=== PATIENT | male | born 1980 | race Caucasian/White ===

== ENCOUNTER → 2016-11-26 | Outpatient (CLI) | payer BC ==
[~2016-11-26] VITALS: Ht 175.3 cm; Wt 97.7 kg
[~2016-11-26] MED LIST: AMITRIPTYLINE10 MG PO; BACTRIM DS 8001 TAB PO; BENADRYL50 MG PO; BENTYL 20MG TAB20 MG PO; BENTYL PO; BUSPIRONE5 MG PO; CARDI-OMEGA1000 MG PO; CEPHALEXIN500 M1 PO; CITALOPRAM20 MG PO; COZAAR100 MG PO; CRESTOR PO; DAZIDOX10 MG PO; DEXILANT60 MG PO; DILAUDID 2MG TAB2 MG PO; DOMPERIDONE10 MG/CAP PO; FLEXERIL 1010 MG/TAB PO; IMITREX 6M6 MG/0.5 M SQ; LISINOPRIL PO; LISINOPRIL20 MG PO; LORAZEPAM0.5 MG PO; LORTAB 5/500 501 TAB PO; LORTAB 7.5/5001 TAB PO; MAXALT MLT10 MG/TAB PO; MAXALT10 MG PO; METHADONE5 MG PO; METOPROLOL SUCC25 M1 PO; NAPROSYN PO; NEXIUM PO; NIASPAN500 MG PO; ONDANSETRON4 MG PO; OXYCONTIN 10MG10 MG PO; OXYCONTIN40 MG PO; PERCOCET 325 MG1 TA2 PO; PERCOCET 5/321 UDTAB PO; PHENERGAN 25 TA25 MG PO; PRAVASTATIN20 MG PO; PREDNISONE20 MG PO; PRILOSEC 10MG10 MG PO; TOPROL XL 50MG50 MG PO; TREXIMET PO; [UNRECOGNIZED DRUG - OTHER]
[2016-11-26 12:21] VITALS: BP 130/90; PULSE 60
[2016-11-26 13:05] VITALS: BP 145/98; PULSE 59
== END ==
LOC: COL.RAD 11:45
DX: M51.9 Unspecified thoracic, thoracolumbar and lumbosacral intervertebral disc disorder (principal)

== ENCOUNTER → 2016-12-28 | Outpatient (CLI) | payer BC ==
[~2016-12-28] VITALS: Ht 175.3 cm; Wt 95.5 kg
[2016-12-28 07:16] VITALS: BP 141/105; PULSE 85
== END ==
LOC: COL.RAD 06:30
DX: M51.9 Unspecified thoracic, thoracolumbar and lumbosacral intervertebral disc disorder (principal)
CPT/HCPCS: J3301

== ENCOUNTER → 2017-01-16 | Outpatient (CLI) | payer BC ==
[2017-01-16 09:10] VITALS: BP 144/101; PULSE 79
[2017-01-16 10:11] VITALS: BP 170/119; PULSE 77
[2017-01-16 10:20] VITALS: BP 142/94; PULSE 70
[2017-01-16 10:40] VITALS: BP 134/90; PULSE 78
== END ==
LOC: COL.RAD 12-31 08:00
DX: M51.9 Unspecified thoracic, thoracolumbar and lumbosacral intervertebral disc disorder (principal)
CPT/HCPCS: J3301

== ENCOUNTER 2017-04-13 16:28 | Emergency (ER) | payer BC ==
[~2017-04-13] VITALS: Ht 175.3 cm; Wt 97.7 kg
[2017-04-13 16:32] VITALS: BP 184/101; TEMP 99
[2017-04-13 17:13] VITALS: PULSE 72
== END 2017-04-13 17:14 | disposition home or self-care (01) ==
LOC: COL.ER 16:28
DX: M54.16 Radiculopathy, lumbar region (principal); G89.29 Other chronic pain; M41.9 Scoliosis, unspecified
CPT/HCPCS: J1170; J2550

== ENCOUNTER 2019-06-01 13:44 | Emergency (ER) | payer OTHER ==
[~2019-06-01] VITALS: Ht 175.3 cm; Wt 97.7 kg
[2019-06-01 14:22] VITALS: TEMP 98.4
[2019-06-01 15:10] LABS: COLLECTION METHOD CLEAN CATCH
[2019-06-01 15:18] LABS: BASO # 0.1 (0.0-0.2); BASO % 0.6 % (0.0-2.0); EOS # 0.3 (0.0-0.7); EOS % 4.2 % (0-4.0); GRAN # 4.8 (1.4-6.5); HEMATOCRIT 39.8 % (42.0-52.0); HEMOGLOBIN 13.7 g/dl (13.5-18.0); LYMPH # 1.9 (1.2-3.4); LYMPH % 24.8 % (20.0-51.0); MEAN CELL VOLUME 86 fl (80.0-100.0); MEAN CORPUSCULAR HEMOGLOBIN 30 pg (27.0-31.0); MEAN CORPUSCULAR HGB CONC 34 g/dl (33.0-37.0); MEAN PLATELET VOLUME 9.8 fl (7.4-10.4); MONO # 0.7 (0.1-0.6); PLATELET COUNT 234 K/mm3 (130-400); RED BLOOD COUNT 4.64 M/mm3 (4.20-5.60); REDCELL DISTRIBUTION WIDTH-CV 12.3 % (11.5-14.5)
[2019-06-01 15:20] LABS: MUCOUS Present /lpf; PH 5 (5-8); SQUAMOUS EPITHELIAL None Seen /hpf; URINE APPEARANCE Clear; URINE BACTERIA None Seen /hpf; URINE BILIRUBIN Negative (NEGATIVE); URINE BLOOD 2+ (NEGATIVE); URINE COLOR Yellow; URINE GLUCOSE Negative (NEGATIVE); URINE KETONE Trace (NEGATIVE); URINE LEUKOCYTE ESTERASE Negative (NEGATIVE); URINE NITRATE Negative (NEGATIVE); URINE PROTEIN(semi-quant) Negative (NEGATIVE); URINE UROBILINOGEN Negative (NEGATIVE)
[2019-06-01 15:27] LABS: ALBUMIN 4.3 gm/dL (3.5-5.0); BILIRUBIN,TOTAL 0.6 mg/dL (0.0-1.0); C-REACTIVE PROTEIN 1.3 mg/dL (0.0-0.9); CALCIUM 9.2 mg/dL (8.4-10.2); CREATININE, serum 1.25 (0.66-1.25); POTASSIUM 3.5 mmol/L (3.4-5.0); TOTAL PROTEIN 7.4 gm/dL (6.4-8.2)
[2019-06-01] MEDS ORDERED: MORPHINE 1515 MG/TAB PO (16:30)
[2019-06-01] MEDS ORDERED: SOMA 350MG350 MG/TAB PO (16:31)
[2019-06-01] MEDS ORDERED: ZOFRAN ODT4 MG PO (17:42)
[2019-06-01 17:58] VITALS: BP 125/93; PULSE 81
== END 2019-06-01 18:00 | disposition home or self-care (01) ==
LOC: COL.ER 13:44
PROVIDERS: Nurse Practitioner
DX: R10.31 Right lower quadrant pain (principal); I10 Essential (primary) hypertension; F17.210 Nicotine dependence, cigarettes, uncomplicated; F32.9 Major depressive disorder, single episode, unspecified; F41.9 Anxiety disorder, unspecified; Z90.89 Acquired absence of other organs
CPT/HCPCS: J1170; J2405; J7030; Q9967

== ENCOUNTER 2020-03-25 20:14 | Emergency (ER) | payer OTHER ==
[~2020-03-25] VITALS: Ht 172.7 cm; Wt 100.0 kg
[~2020-03-25 20:14] MED LIST changes: +MORPHINE 1515 MG/TAB PO; +SOMA 350MG350 MG/TAB PO; +ZOFRAN ODT4 MG PO
[2020-03-25 20:21] VITALS: TEMP 98.1
[2020-03-25 21:23] LABS: BASO # 0.1 (0.0-0.2); BASO % 0.5 % (0.0-2.0); EOS # 0.4 (0.0-0.7); EOS % 3.2 % (0-4.0); GRAN # 8.6 (1.4-6.5); GRAN % 65.8 % (42.2-75.2); HEMATOCRIT 46.3 % (42.0-52.0); HEMOGLOBIN 15.7 g/dl (13.5-18.0); LYMPH # 2.8 (1.2-3.4); LYMPH % 21.5 % (20.0-51.0); MEAN CELL VOLUME 86 fl (80.0-100.0); MEAN CORPUSCULAR HEMOGLOBIN 29 pg (27.0-31.0); MEAN CORPUSCULAR HGB CONC 34 g/dl (33.0-37.0); MEAN PLATELET VOLUME 9.8 fl (7.4-10.4); MONO # 1.2 (0.1-0.6); MONO % 8.8 % (1.7-9.3); PLATELET COUNT 282 K/mm3 (130-400); RED BLOOD COUNT 5.37 M/mm3 (4.20-5.60); REDCELL DISTRIBUTION WIDTH-CV 12.4 % (11.5-14.5)
[2020-03-25] MEDS ORDERED: NEXIUM 40MG40 MG PO (21:23)
[2020-03-25 21:41] LABS: ALANINE AMINOTRANSFERASE 32 U/L (4-49); ALBUMIN 4.5 gm/dL (3.5-5.0); ALKALINE PHOSPHATASE 114 U/L (50-136); ANION GAP 9 mmol/L (7-16); AST,SGOT 34 U/L (15-37); BILIRUBIN,TOTAL 0.8 mg/dL (0.0-1.0); BLOOD UREA NITROGEN 11 mg/dL (9-20); CALCIUM 9.4 mg/dL (8.4-10.2); CARBON DIOXIDE 30 mmol/L (22-30); CHLORIDE 99 mmol/L (98-107); CREATININE, serum 1.25 (0.66-1.25); GLUCOSE 83 mg/dL (74-106); POTASSIUM 3.2 mmol/L (3.4-5.0); SODIUM 139 mmol/L (137-145); TOTAL PROTEIN 7.8 gm/dL (6.4-8.2)
[2020-03-25 22:10] LABS: C-REACTIVE PROTEIN < 0.5 mg/dL (0.0-0.9); TROPONIN-I < 0.012 ng/mL (0.000-0.035)
[2020-03-25] MEDS ORDERED: ANTIVERT 25MG25 MG PO (22:49)
[2020-03-25] MEDS ORDERED: NORVASC 5MG5 MG/TAB PO (22:49)
[2020-03-25 23:08] VITALS: BP 144/95; PULSE 86
== END 2020-03-25 23:18 | disposition home or self-care (01) ==
LOC: COL.ER 20:14
PROVIDERS: Emergency Medicine
DX: I10 Essential (primary) hypertension (principal); R42 Dizziness and giddiness; R05 Cough; F17.210 Nicotine dependence, cigarettes, uncomplicated
CPT/HCPCS: J2060; J7030

== ENCOUNTER 2020-09-25 09:59 | Emergency (ER) | payer BC ==
[~2020-09-25] VITALS: Ht 172.7 cm; Wt 98.2 kg
[~2020-09-25 09:59] MED LIST changes: +ANTIVERT 25MG25 MG PO; +NEXIUM 40MG40 MG PO; +NORVASC 5MG5 MG/TAB PO
[2020-09-25 10:06] VITALS: TEMP 97.4
[2020-09-25 12:20] VITALS: BP 126/88; PULSE 76
== END 2020-09-25 12:30 | disposition home or self-care (01) ==
LOC: COL.ER 09:59
DX: I10 Essential (primary) hypertension (principal); M54.5 Low back pain; R10.31 Right lower quadrant pain; Z20.822 Contact with and (suspected) exposure to COVID-19; Z90.49 Acquired absence of other specified parts of digestive tract; Z88.1 Allergy status to other antibiotic agents; Z88.8 Allergy status to other drugs, medicaments and biological substances

== ENCOUNTER → 2020-10-20 | Outpatient (CLI) | payer BC | LOC: COL.RAD 09:12 | DX: K44.9 Diaphragmatic hernia without obstruction or gangrene (principal) ==

== ENCOUNTER 2020-11-09 10:35 | Observation (INO) | payer BC ==
[~2020-11-09] VITALS: Ht 172.7 cm; Wt 97.7 kg
[2020-11-09 11:41] LABS: BASO % 0.5 % (0.0-2.0); EOS # 0.3 (0.0-0.7); EOS % 3.6 % (0-4.0); GRAN # 5.1 (1.4-6.5); GRAN % 59.5 % (42.2-75.2); HEMATOCRIT 40.9 % (42.0-52.0); LYMPH # 2.4 (1.2-3.4); LYMPH % 27.7 % (20.0-51.0); MEAN CELL VOLUME 87 fl (80.0-100.0); MEAN CORPUSCULAR HEMOGLOBIN 30 pg (27.0-31.0); MEAN CORPUSCULAR HGB CONC 34 g/dl (33.0-37.0); MEAN PLATELET VOLUME 9.6 fl (7.4-10.4); MONO # 0.7 (0.1-0.6); MONO % 8.3 % (1.7-9.3); PLATELET COUNT 227 K/mm3 (130-400); RED BLOOD COUNT 4.73 M/mm3 (4.20-5.60); REDCELL DISTRIBUTION WIDTH-CV 12.5 % (11.5-14.5)
[2020-11-09 12:12] LABS: PROTHROMBIN TIME 11.2 SECONDS (9.7-12.8)
[2020-11-09 12:14] LABS: PARTIAL THROMBOPLASTIN TIME 30.2 SECONDS (26.0-37.0)
[2020-11-09 12:53] LABS: TRICYCLIC ANTIDEPRESS URINE NEGATIVE
[2020-11-09 13:08] LABS: ALANINE AMINOTRANSFERASE 23 U/L (4-49); ALKALINE PHOSPHATASE 97 U/L (50-136); ANION GAP 9 mmol/L (7-16); AST,SGOT 23 U/L (15-37); BILIRUBIN,TOTAL 0.6 mg/dL (0.0-1.0); BLOOD UREA NITROGEN 24 mg/dL (9-20); CALCIUM 9.5 mg/dL (8.4-10.2); CARBON DIOXIDE 28 mmol/L (22-30); CHLORIDE 103 mmol/L (98-107); CREATININE, serum 1.05 (0.66-1.25); GLUCOSE 89 mg/dL (74-106); LIPASE 98 U/L (23-300); POTASSIUM 3.5 mmol/L (3.4-5.0); SODIUM 139 mmol/L (137-145); TOTAL PROTEIN 6.8 gm/dL (6.4-8.2)
[2020-11-09] MEDS ORDERED: SOMA 350MG350 MG/TAB PO (13:16)
[2020-11-09] MEDS ORDERED: PRILOSEC10 MG PO (13:16)
[2020-11-09] MEDS ORDERED: TOPROL XL 50MG50 MG PO (13:18)
[2020-11-09] MEDS ORDERED: ZOFRAN ODT8 MG PO (13:18)
[2020-11-09] MEDS ORDERED: NIRAVAM0.25 MG PO (13:19)
[2020-11-09 13:21] LABS: TROPONIN-I < 0.012 ng/mL (0.000-0.035)
--- NOTE | 2020-11-09 16:27 | NUR ---
PT SETTLED INTO ROOM, EDUCATED HE NEEDS TO ASK FOR HELP WHEN GETTING UP, ORIENTED HIM TO ROOM AND CALL LIGHT, ICE WATER AND URINAL BROUGHT IN FOR PT, PT AOX4, ASSESSMENT PERFORMED, ALLERGIES VERIFIED, MED LIST OBTAINED. NO OTHER NEEDS.
[2020-11-09] MEDS ORDERED: REGLAN 10MG10 MG/TAB PO (16:39)
[2020-11-09] MEDS ORDERED: HYZAAR 25 MG-101 TAB PO (16:41)
[2020-11-09] MEDS ORDERED: OMEGA-3 1000 MG1 CAP PO (16:44)
--- NOTE | 2020-11-09 17:40 | NUR ---
PT LOIS, AOX4, EDUCATED TO USE CALL LIGHT WHEN GETTING UP, DR. MIRELES AWARE OF INC DIASTOLIC, NO NEW ORDERS, MED REC COMPLETED, NO OTHER NEEDS
[2020-11-09 17:50] VITALS: BP 133/101; PULSE 66
[2020-11-09 17:52] VITALS: BP 154/113; PULSE 72
--- NOTE | 2020-11-09 17:53 | NUR ---
DR. MALAVE GAVE VERBAL ORDER FOR PLAVIX AND LOVENOX AND ORTHOSTATIC PRESSURES ONE TIME. ALL ORDERS PLACED
[2020-11-09 17:54] VITALS: BP 154/121; PULSE 74
[2020-11-09 17:59] VITALS: BP 133/101; PULSE 66
--- NOTE | 2020-11-09 18:03 | NUR ---
ANANDA AWARE OF ORTHOSTATICS, ATTEMPTED TO REACH SURESH REYNA DUE TO HIGH DIASTOLICS BUT SHE DID NOT ANSWER.
--- NOTE | 2020-11-09 18:28 | NUR ---
MARICHUY NOTIFIED OF HIGH BP AND PT HAVING HEARTBURN. PROTONIX ORDERED AND GIVEN, PT ALSO REQUESTED ZORAIDA WHICH WAS GIVEN FOR BACK PAIN.
[2020-11-09 19:14] VITALS: BP 139/105; PULSE 75; TEMP 68.3
[2020-11-09 23:42] VITALS: BP 123/86; PULSE 89; TEMP 97.7
[2020-11-10 04:47] VITALS: BP 120/85; PULSE 70; TEMP 97.7
[2020-11-10 07:02] LABS: BASO % 0.5 % (0.0-2.0); EOS # 0.4 (0.0-0.7); EOS % 5.3 % (0-4.0); GRAN # 4.6 (1.4-6.5); GRAN % 55.4 % (42.2-75.2); HEMATOCRIT 40.2 % (42.0-52.0); HEMOGLOBIN 13.7 g/dl (13.5-18.0); LYMPH # 2.6 (1.2-3.4); LYMPH % 31.1 % (20.0-51.0); MEAN CELL VOLUME 89 fl (80.0-100.0); MEAN CORPUSCULAR HEMOGLOBIN 30 pg (27.0-31.0); MEAN CORPUSCULAR HGB CONC 34 g/dl (33.0-37.0); MEAN PLATELET VOLUME 9.9 fl (7.4-10.4); MONO # 0.6 (0.1-0.6); MONO % 7.2 % (1.7-9.3); PLATELET COUNT 231 K/mm3 (130-400); RED BLOOD COUNT 4.54 M/mm3 (4.20-5.60); REDCELL DISTRIBUTION WIDTH-CV 12.5 % (11.5-14.5)
[2020-11-10 07:12] LABS: CALCIUM 8.6 mg/dL (8.4-10.2); CHOLESTEROL RISK RATIO 6.3; CREATININE, serum 1.12 (0.66-1.25); POTASSIUM 3.6 mmol/L (3.4-5.0)
[2020-11-10 08:51] VITALS: BP 130/96; PULSE 81; TEMP 97.5
--- NOTE | 2020-11-10 09:00 | NUR ---
Assessment completed, alert/oriented, vital signs stable/ HTN but we are holding B/p meds to allow permissive HTN, denies any chest pain discomfort, heart RRR, lungs CTA/ no resp.difficulty noted, no neuro deficits noted and patient reprots everyhting is "back to normal", speech clear/ processing assistant equal and no unilateral defictis noted, he is sitting up eating breakfast and waiting for have braind MRI/MRA
[2020-11-10 12:00] VITALS: BP 125/90; PULSE 77; TEMP 97.7
--- NOTE | 2020-11-10 14:56 | NUR ---
Cyber Threat Analyst contacted the patient's , [facility] to complete intake. The patient lives independently in [place] with [facility]ina. The patient does not use DME. The patient's PCP is Dr. Rao and patient receives medications from [facility]. The patient does not have advanced directives. The plan is for the patient to return home. PT is recommending outpatient pt. SW discussed options with [facility]. She will discuss them with the patient then inform this SW.
[2020-11-10 17:01] VITALS: BP 131/90; PULSE 80; TEMP 98.1
[2020-11-10 19:11] VITALS: BP 123/92; PULSE 74; TEMP 98.3
[2020-11-11 00:37] VITALS: BP 125/93; PULSE 75; TEMP 97.6
[2020-11-11 04:40] VITALS: BP 126/83; PULSE 71; TEMP 97.6
--- NOTE | 2020-11-11 07:00 | NUR ---
Report received from KRISTIE Klein. pT in bed resting, denies needs, will continue to monitor.
[2020-11-11 08:39] VITALS: BP 131/89; PULSE 65; TEMP 98.3
--- NOTE | 2020-11-11 09:43 | NUR ---
Assessment charted. PT doing well, has headache that is 6/10 but does not want t ot take pain meds as at this time. Consent completed and questions answered, reviewed flat time post procedure. Pt is weak and states left is more weak then right. IVF to LA/C. Pt wants to rest with lights off for headache, will continuye to monitor.
[2020-11-11] MEDS ORDERED: PLAVIX 75MG TAB75 MG PO (10:24)
[2020-11-11] MEDS ORDERED: HCTZ 25MG TAB25 MG PO (10:25)
[2020-11-11] MEDS ORDERED: ASPIRIN E.C. 8181 MG PO (10:25)
[2020-11-11] MEDS ORDERED: LIPITOR 40MG TA40 MG PO (10:26)
[2020-11-11] MEDS ORDERED: NICODERM C21 MG/PATC TD (10:27)
--- NOTE | 2020-11-11 10:34 | NUR ---
Dowel Inserting Machine Operator attended clinical rounds with the team. After rounds, SW met with the patient and his regarding outpatient therapy. The patient is to got to [facility] on . SW faxed referral. SW collaborated the above information with the team.
[2020-11-11 13:02] LABS: TOTAL PROTEIN,CSF 36 mg/dL (15-45)
[2020-11-11 13:14] VITALS: BP 119/82; PULSE 60; TEMP 97.8
[2020-11-11 13:20] LABS: CSF APPEARANCE CLEAR; CSF COLOR COLORLESS; CSF RBC < 1 /mm3 (0-0)
[2020-11-11 13:21] LABS: CSF MONONUCLEAR 90 % (70-100); CSF POLYMORPHONUCLEAR 10 % (0-6)
--- NOTE | 2020-11-11 14:45 | NUR ---
Pt returned to room, resting in bed, bandaid is CDI, ordered lunch, drinking pepsi, denies needs, at bedside, will continue to monitor.
--- NOTE | 2020-11-11 16:07 | NUR ---
Discharge teaching completed at [facility] time. Pt received discharge packet, reveiwed new meds, f/u appointments, answered all questions. Pt INT dc'd, tip intact. Pt left with all belongings, escorted out via w/c with medical staff. to drive home, criteria met.
[2020-11-11 19:03] LABS: LYME DISEASE ANTIBODIES Negative (Negative)
[2020-11-13 13:54] LABS: ANA SCREEN with REFLEX Negative (Negative)
[2020-11-14 13:15] LABS: HSV 2 DNA PCR QUAL Not Detected (())
[2020-11-16 21:25] LABS: CSF OLIG BD INTERPRETATION 0 bands (<2); SE OLIGOCLONAL BANDING 0 bands (())
[2020-11-17 07:47] LABS: ALBUMIN CSF 23.1 mg/dL (<=27.0)
[2020-11-17 08:16] LABS: ALBUMUN SERUM 3640 mg/dL (()); IGG,SERUM 683 mg/dL (()); IGG/ALBUMIN SERUM 0.19 (<=0.40)
[2020-11-17 08:19] LABS: CSF IGG/ALBUMIN 0.12 (<=0.21); CSF SYNTHESIS RATE 2.86 mg/24 h (<=12); CSF,IGG 2.7 mg/dL (<=8.1); CSF-IGG INDEX 0.63 (<=0.85)
== END 2020-11-11 16:00 | disposition home or self-care (01) ==
LOC: COL.ER 10:35 → MEDICAL 14:00
PROVIDERS: Emergency Medicine; Physician Assistant; Psychiatry & Neurology Neurology; ADMIT Hospitalist
DX: R26.89 Other abnormalities of gait and mobility (principal); R29.6 Repeated falls; R47.81 Slurred speech; J45.909 Unspecified asthma, uncomplicated; K31.84 Gastroparesis; K58.9 Irritable bowel syndrome, unspecified; K27.9 Peptic ulcer, site unspecified, unspecified as acute or chronic, without hemorrhage or perforation; K21.9 Gastro-esophageal reflux disease without esophagitis; I10 Essential (primary) hypertension; G89.29 Other chronic pain; E78.5 Hyperlipidemia, unspecified; F17.210 Nicotine dependence, cigarettes, uncomplicated; F19.90 Other psychoactive substance use, unspecified, uncomplicated; Z79.899 Other long term (current) drug therapy; Z90.49 Acquired absence of other specified parts of digestive tract; Z79.891 Long term (current) use of opiate analgesic; Z20.822 Contact with and (suspected) exposure to COVID-19
CPT/HCPCS: 99239; A9585; G0008; G0378; J1650; J2405; J2765; J3480; Q9967

== ENCOUNTER 2020-11-11 23:51 | Emergency (ER) | payer BC ==
[~2020-11-11] VITALS: Ht 175.3 cm; Wt 97.7 kg
[2020-11-11 23:51] VITALS: TEMP 97.5
[~2020-11-11 23:51] MED LIST changes: +ASPIRIN E.C. 8181 MG PO; +HCTZ 25MG TAB25 MG PO; +HYZAAR 25 MG-101 TAB PO; +LIPITOR 40MG TA40 MG PO; +NICODERM C21 MG/PATC TD; +NIRAVAM0.25 MG PO; +OMEGA-3 1000 MG1 CAP PO; +PLAVIX 75MG TAB75 MG PO; +PRILOSEC10 MG PO; +REGLAN 10MG10 MG/TAB PO; +ZOFRAN ODT8 MG PO
[2020-11-12 02:10] VITALS: BP 135/84; PULSE 97
== END 2020-11-12 02:10 | disposition home or self-care (01) ==
LOC: COL.ER 23:51
DX: T88.59XA Other complications of anesthesia, initial encounter (principal); G44.40 Drug-induced headache, not elsewhere classified, not intractable; I10 Essential (primary) hypertension; K21.9 Gastro-esophageal reflux disease without esophagitis; G45.9 Transient cerebral ischemic attack, unspecified; F17.210 Nicotine dependence, cigarettes, uncomplicated; Z88.8 Allergy status to other drugs, medicaments and biological substances; Z79.02 Long term (current) use of antithrombotics/antiplatelets; Z79.82 Long term (current) use of aspirin
CPT/HCPCS: J0360; J1200; J1885; J2270; J2765; J7030

== ENCOUNTER 2020-11-14 11:51 | Emergency (ER) | payer BC ==
[~2020-11-14] VITALS: Ht 172.7 cm; Wt 97.7 kg
[2020-11-14 12:16] VITALS: TEMP 97.8
[2020-11-14] MEDS ORDERED: FIORICET 325 MG1 TA1 PO (14:54)
[2020-11-14 15:09] VITALS: BP 135/86; PULSE 70
== END 2020-11-14 15:08 | disposition home or self-care (01) ==
LOC: COL.ER 11:51
DX: G97.1 Other reaction to spinal and lumbar puncture (principal); R51.9 Headache, unspecified; G45.9 Transient cerebral ischemic attack, unspecified; I10 Essential (primary) hypertension; K21.9 Gastro-esophageal reflux disease without esophagitis; F17.210 Nicotine dependence, cigarettes, uncomplicated; Z88.8 Allergy status to other drugs, medicaments and biological substances; Z79.02 Long term (current) use of antithrombotics/antiplatelets; Z79.82 Long term (current) use of aspirin
CPT/HCPCS: J1630; J2405; J7030

== ENCOUNTER 2020-11-24 09:59 | Outpatient (RCR) | payer BC ==
[~2020-11-24 09:59] MED LIST changes: +FIORICET 325 MG1 TA1 PO
== END 2020-12-20 13:46 | disposition home or self-care (01) ==
LOC: MKS.ESL.PT 09:59
DX: R26.89 Other abnormalities of gait and mobility (principal)